=== PATIENT | male | born 1970 | race Caucasian/White ===

== ENCOUNTER 2022-09-10 12:18 | Inpatient (IN) | payer SELFPAY ==
[~2022-09-10] VITALS: Ht 182.9 cm; Wt 102.5 kg
[2022-09-10] MEDS ORDERED: AMLODIPINE BESY10 MG PO (12:25)
[2022-09-10] MEDS ORDERED: ATORVASTATIN CA20 M1 PO (12:26)
[2022-09-10 12:38] VITALS: BP 121/78
[2022-09-10 12:55] LABS: BASO # 0.1 10*3/uL (0.0-0.1); BASO % 0.6 % (0.0-1.0); EOS % 0.4 % (1.0-4.0); HEMATOCRIT 35.2 % (42.0-52.0); LYMPH # 1.4 10*3/uL (1.3-4.4); LYMPH % 14.8 % (27.0-41.0); MEAN CELL VOLUME 94.9 fl (80.0-94.0); MEAN CORPUSCULAR HGB 32.3 pg (27.0-31.0); MEAN CORPUSCULAR HGB CONC 34.1 g/dl (33.0-37.0); MEAN PLATELET VOLUME 9.2 fl (9.6-12.3); MONO # 0.6 10*3/uL (0.1-1.0); MONO % 6.1 % (3.0-9.0); NEUT # 7.4 10*3/uL (2.3-7.9); NEUT % 77.8 % (47.0-73.0); PLATELET COUNT AUTOMATED 231 10*3/uL (130-400); RED BLOOD COUNT 3.71 10*6/uL (4.50-5.90); RED CELL DISTRI WIDTH 11.9 % (0-14.5); WHITE BLOOD COUNT 9.5 10*3/uL (4.8-10.8)
[2022-09-10 13:06] LABS: ACT PARTIAL THROMBO TIME 22.5 SECONDS (20.0-32.1)
[2022-09-10 13:20] LABS: ALKALINE PHOSPHATASE 49 U/L (46-116); BUN 40 mg/dl (9-23); CHLORIDE 101 mmol/L (98-107); POTASSIUM 4.6 mmol/L (3.4-5.1); SGPT/ALT 83 U/L (10-49); TOTAL PROTEIN 6.5 gm/dL (6.0-8.0)
[2022-09-10 15:32] VITALS: BP 150/81
[2022-09-10 17:14] VITALS: BP 148/72
[2022-09-10 17:30] VITALS: BP 150/93
[2022-09-10 20:00] VITALS: BP 147/77
[2022-09-11] VITALS: BP 139/66
[2022-09-11 07:02] LABS: BASO % 0.6 % (0.0-1.0); EOS # 0.2 10*3/uL (0.0-0.4); EOS % 2.7 % (1.0-4.0); HEMATOCRIT 28.1 % (42.0-52.0); LYMPH # 1.9 10*3/uL (1.3-4.4); LYMPH % 27.1 % (27.0-41.0); MEAN CELL VOLUME 96.6 fl (80.0-94.0); MEAN CORPUSCULAR HGB 32.6 pg (27.0-31.0); MEAN CORPUSCULAR HGB CONC 33.8 g/dl (33.0-37.0); MEAN PLATELET VOLUME 9.5 fl (9.6-12.3); MONO # 0.7 10*3/uL (0.1-1.0); MONO % 9.8 % (3.0-9.0); NEUT # 4.1 10*3/uL (2.3-7.9); NEUT % 59.1 % (47.0-73.0); PLATELET COUNT AUTOMATED 190 10*3/uL (130-400); RED BLOOD COUNT 2.91 10*6/uL (4.50-5.90); RED CELL DISTRI WIDTH 12.3 % (0-14.5); WHITE BLOOD COUNT 6.9 10*3/uL (4.8-10.8)
[2022-09-11 08:00] VITALS: BP 141/82
[2022-09-11 09:02] LABS: ALKALINE PHOSPHATASE 41 U/L (46-116); CHLORIDE 108 mmol/L (98-107); CHOLESTEROL 136 mg/dL (<200); FREE T4 0.87 ng/dl (0.89-1.76); LDL CHOLESTEROL 60 mg/dL (9-159); POTASSIUM 4.3 mmol/L (3.4-5.1); SGPT/ALT 64 U/L (10-49); THYROID STIM HORMONE (HS) 1.953 uIU/ml (0.550-4.780); TOTAL PROTEIN 5.8 gm/dL (6.0-8.0); TRIGLYCERIDES 181 mg/dl (<150)
[2022-09-11 09:05] LABS: BUN 20 mg/dl (9-23); VITAMIN D, 25-HYDROXY 36.5 ng/mL (30-100)
[2022-09-11 12:00] VITALS: BP 150/79
[2022-09-11 16:00] VITALS: BP 130/90
[2022-09-11 20:00] VITALS: BP 135/69
[2022-09-12] VITALS (9 sets, daily range): BP systolic 110–154; BP diastolic 60–74
[2022-09-12 06:48] LABS: BASO # 0.1 10*3/uL (0.0-0.1); BASO % 0.9 % (0.0-1.0); EOS # 0.4 10*3/uL (0.0-0.4); EOS % 6.1 % (1.0-4.0); HEMATOCRIT 26.4 % (42.0-52.0); LYMPH # 1.7 10*3/uL (1.3-4.4); LYMPH % 29.7 % (27.0-41.0); MEAN CELL VOLUME 95.3 fl (80.0-94.0); MEAN CORPUSCULAR HGB 33.2 pg (27.0-31.0); MEAN CORPUSCULAR HGB CONC 34.8 g/dl (33.0-37.0); MEAN PLATELET VOLUME 9.1 fl (9.6-12.3); MONO # 0.5 10*3/uL (0.1-1.0); MONO % 8.9 % (3.0-9.0); NEUT # 3.1 10*3/uL (2.3-7.9); NEUT % 53.5 % (47.0-73.0); PLATELET COUNT AUTOMATED 164 10*3/uL (130-400); RED BLOOD COUNT 2.77 10*6/uL (4.50-5.90); WHITE BLOOD COUNT 5.7 10*3/uL (4.8-10.8)
[2022-09-12 07:29] LABS: BUN 13 mg/dl (9-23); CHLORIDE 103 mmol/L (98-107); POTASSIUM 4.1 mmol/L (3.4-5.1)
[2022-09-13] VITALS: BP 136/64
[2022-09-13 08:00] VITALS: BP 146/76
[2022-09-13 08:06] LABS: BASO # 0.1 10*3/uL (0.0-0.1); BASO % 0.9 % (0.0-1.0); EOS # 0.4 10*3/uL (0.0-0.4); EOS % 6.8 % (1.0-4.0); HEMATOCRIT 26.7 % (42.0-52.0); LYMPH # 1.6 10*3/uL (1.3-4.4); LYMPH % 28.2 % (27.0-41.0); MEAN CELL VOLUME 95.7 fl (80.0-94.0); MEAN CORPUSCULAR HGB 32.6 pg (27.0-31.0); MEAN CORPUSCULAR HGB CONC 34.1 g/dl (33.0-37.0); MEAN PLATELET VOLUME 9.6 fl (9.6-12.3); MONO # 0.6 10*3/uL (0.1-1.0); MONO % 10.4 % (3.0-9.0); NEUT % 52.5 % (47.0-73.0); PLATELET COUNT AUTOMATED 188 10*3/uL (130-400); RED BLOOD COUNT 2.79 10*6/uL (4.50-5.90); RED CELL DISTRI WIDTH 12.1 % (0-14.5); WHITE BLOOD COUNT 5.8 10*3/uL (4.8-10.8)
[2022-09-13 08:45] LABS: BUN 14 mg/dl (9-23); CHLORIDE 105 mmol/L (98-107); POTASSIUM 4.1 mmol/L (3.4-5.1)
[2022-09-13 12:00] VITALS: BP 151/95
[2022-09-13 16:00] VITALS: BP 137/85
[2022-09-13] MEDS ORDERED: Carafate1 GM PO (16:48)
[2022-09-13] MEDS ORDERED: ATORVASTATIN CA80 M1 PO (16:48)
[2022-09-13] MEDS ORDERED: PROTONIX40 MG PO (16:49)
[2022-09-13] MEDS ORDERED: ASPIRIN FOR CHI81 MG PO (16:50)
[2022-09-13] MEDS ORDERED: TOPROL XL25 MG PO (16:51)
== END 2022-09-13 18:51 | disposition left against medical advice (07) | DRG 377 ==
LOC: ED 12:18 → EDHOLD 13:39 → 5E 13:39 → EDHOLD 14:40 → 5E 17:20
PROVIDERS: Family Medicine; Internal Medicine; ADMIT Internal Medicine; ATTEND Internal Medicine
PROC: 0DB78ZX Excision of Stomach, Pylorus, Via Natural or Artificial Opening Endoscopic, Diagnostic (ICD-10-PCS; principal; 2022-09-12)
PROC: 4A02XM4 Measurement of Cardiac Total Activity, External Approach (ICD-10-PCS; 2022-09-13)
PROC: 3E073KZ Introduction of Other Diagnostic Substance into Coronary Artery, Percutaneous Approach (ICD-10-PCS; 2022-09-13)
DX: K25.0 Acute gastric ulcer with hemorrhage (principal); I21.4 Non-ST elevation (NSTEMI) myocardial infarction; E87.1 Hypo-osmolality and hyponatremia; D62 Acute posthemorrhagic anemia; K92.1 Melena; E78.5 Hyperlipidemia, unspecified; R74.01 Elevation of levels of liver transaminase levels; M79.601 Pain in right arm; I10 Essential (primary) hypertension; G89.29 Other chronic pain; Z53.29 Procedure and treatment not carried out because of patient's decision for other reasons; F12.10 Cannabis abuse, uncomplicated; F10.10 Alcohol abuse, uncomplicated; Z82.49 Family history of ischemic heart disease and other diseases of the circulatory system; Z82.3 Family history of stroke; Z79.899 Other long term (current) drug therapy